=== PATIENT | male | born 1985 | race Caucasian/White ===

== ENCOUNTER → 2017-10-19 | Outpatient (REF) ==
[~2017-10-19] MED LIST: ACE500 PO; AUG875 PO; HYDR-3724 PO; LOM PO; NO ROUTINE MEDS; PER PO; PRO25 PO
== END ==
LOC: AUD 10:30
PROVIDERS: ATTEND Internal Medicine
DX: Z01.10 Encounter for examination of ears and hearing without abnormal findings (principal)
CPT/HCPCS: 92552

== ENCOUNTER → 2018-10-11 | Outpatient (REF) | LOC: AUD 09:00 | PROVIDERS: ATTEND Internal Medicine | DX: Z01.12 Encounter for hearing conservation and treatment (principal) | CPT/HCPCS: 92552 ==